=== PATIENT | male | born 1965 | race Caucasian/White ===

== ENCOUNTER 2020-02-21 12:56 | Outpatient (REF) | payer BC, SELFPAY ==
[2020-02-21 15:16] LABS: Erythrocyte Sedimentation Rate 2 MM/HR (0-15)
[2020-02-23 14:21] LABS: IgA 236 mg/dL (47-310); IgG 940 mg/dL (600-1640); IgM 46 mg/dL (50-300)
== END 2020-02-21 12:57 | disposition home or self-care (01) ==
LOC: HO.LAB 12:56
PROVIDERS: Visit Provider Psychiatry & Neurology Neurology
DX: G62.9 Polyneuropathy, unspecified (principal)
CPT/HCPCS: 36415; 82784; 85652; 86618